=== PATIENT | male | born 1975 | race Caucasian/White ===

== ENCOUNTER 2021-09-11 22:35 | Inpatient (IN) | payer OTHER, SELFPAY ==
[2021-09-11 22:40] VITALS: BP 154/83; PULSE 88; RESP 16; TEMP 36.8; O2SAT 97
--- NOTE | 2021-09-11 22:45 | DI.CT_ITS ---
Exam(s) CT ABDOMEN PELVIS WO EXAM: CT ABDOMEN PELVIS WO CLINICAL HISTORY: right flank and rlq pain, r/o appe/stone. TECHNIQUE: Imaging Protocol: Axial computed tomography images with coronal and sagittal reformatted images were created and reviewed. COMPARISON: No exams were available for comparison FINDINGS: ABDOMEN: Lung Bases: Mild right basilar atelectasis. Liver: Normal density. There is a tiny hypodensity in the right lobe of the liver. It is too small f or further characterization but likely reflects benign lesions such as a cyst. Gallbladder and biliary tract: No radiodense calculus or biliary ductal dilation. Pancreas: Normal density, no abnormal calcifications or inflammatory process. Spleen: Normal. Kidneys: Normal size, contour and axis.There is a 5 mm stone at the right UVJ causing moderate hydron ephrosis. There is fluid in the perirenal space extending into the pelvis. No masses seen. Adrenal glands: No mass is seen. Lymph nodes: Within normal limits. Abdominal Aorta: Abdominal portion non-dilated. PELVIS: Bladder:Symmetric distention, no gross wall thickening. Bowel: No obstruction or bowel wall thickening. Appendix is unremarkable. There is a moderate amount of stool throughout the colon. Peritoneal cavity: No ascites, collection or mesenteric inflammatory response. No free air. Reproductive organs: Within normal limits. Bones: Within normal limits. Soft Tissues: Within normal limits. IMPRESSION: 5 mm right UVJ stone causing moderate hydronephrosis in fluid in the pararenal space suggesting forni ceal rupture. RADIATION DOSE DELIVERED: 934.65mGy.cm Total DLP DATA REPOSITORY: All CT scans at this facility are submitted to the National Radiology Data Registry (NRDR) Dose Index Registry (DIR) with the [employer] (ACR). RADIATION OPTIMIZATION: All CT scans at this facility use at least one of these dose optimization te chniques: automated exposure control; mA and/or kV adjustment per patient size (includes targeted exa ms where dose is matched to clinical indication); or iterative reconstruction.
--- NOTE | 2021-09-11 22:50 | ED.GENADUL_ITS ---
Discharge Plan Disposition Patient Disposition: [facility] INPATIENT Condition: Improving Discharge Details Chief Complaint: FlankPain Clinical Impression: Kidney stone on right side Primary Care Provider: Unknown,Unknown ED Provider: Torsten Ferrell Home Meds and New Rx's Prescriptions: No Action No Known Home Meds RF: 0 Medical Decision Making This is a pleasant 45-year-old male with a past medical history bilateral inguinal hernia repair, vasectomy, who presents today for evaluation of right flank and right lower quadrant abdominal pain. Patient states that for the last 4 days he has had a gradually worsening right-sided flank and abdominal pain. Pain was initially achy, but has worsened with time. He denies any vomiting or diarrhea. He does admit to some difficulty urinating. He denies any jude hematuria. He denies any burning with urination. He denies any testicular pain. He denies any history of kidney stone. He did take Advil yesterday and today and this only helped minimally. He has been drinking plenty of fluids at home. No other complaints at this time. No other modifying factors. Physical exam demonstrates mild right CVA tenderness, as well as mild right lower quadrant tenderness. Genital exam unremarkable. Differential is highest for urinary etiology, i.e. stone versus less likely infection. Appendicitis is also on the differential but less likely. We will treat the patient's pain, get a CT scan, rehydrate, monitor closely and reassess 12:03 AM Laboratory work-up has returned, patient does have a white count of 17, moderate left shift. No bands. Electrolytes stable, renal function demonstrates a creatinine 1.3, GFR 60%. Electrolytes normal. Lipase normal. Urinalysis shows moderate blood, small leuk esterase, only 5-10 WBCs and 5-10 RBCs. Relatively unremarkable otherwise. CT scan results have returned and the patient does have a 4 x 3 mm obstructing stone at the right UVJ, with a large amount of perinephric fluid suggesting probable forniceal rupture. Also 1 mm calcification along the margin of the right pelvic ureter, uncertain if this represents ureteral stone or mimicking phleboliths. On reassessment the patient's pain is nearly completely resolved. He feels much better. Vital signs remained completely stable with no tachycardia or hypotension. We will add blood cultures and Zosyn. I did contact Dr. Salinas he does feel that the patient would benefit from admission antibiotics and monitoring. He does not recommend emergent removal of the stone at this point given its location, small size, the patient general current assessment. We will add Flomax here in the ED. There are no beds currently at [facility] or the [facility]. We will keep the patient here for the time being, continue antibiotics monitor closely. Dr. Salinas is not available for emergent surgical intervention tomorrow morning, so I did discuss with the hospitalist Dr Morris about the options of keeping the patient here for continued monitoring. With no beds available at [facility] or [facility], and the patient's notably stable current clinical appearance, in conjunction with the stone being at the UVJ, and with the patient now having resolution of his pain, and potentially having passed a stone on his own, we will keep the patient here at for the time being continue to monitor with ur ology reassessment if indicated. I have extensively reviewed the treatment plan and discharge instructions with the patient. I have addressed all patient concerns at this time. The patient was made aware of what symptoms to monitor for that would warrant a return to the emergency department. Discussed the plan with the patient, they demonstrate verbal understanding and agreement with our assessment and plan at this time. The documentation in this chart was dictated using [employer] dictation software. Please excuse any dictation errors. FINDINGS: Tubes, catheters and devices: Surgical material associated with the anterior wall of the pelvis. Prior bilateral inguinal herniorrhaphy? Correlation with surgical history recommended. Lungs: Mild dependent atelectasis on the right. Liver: Small indeterminate hypoattenuating hepatic lesion, incompletely characterized but most likely a small cyst or hemangioma. Gallbladder and bile ducts: Normal appearing gallbladder. No calcified gallstones. No biliary dilatation. Pancreas: Grossly unremarkable unenhanced pancreas. Spleen: Grossly unremarkable unenhanced spleen. Adrenal glands: Normal appearing adrenal glands. Kidneys and ureters: Normal-appearing left kidney. No left-sided stones, hydronephrosis, or ureterectasis. 4 mm x 3 mm stone at the right ureterovesical junction with upstream ureterectasis, extensive periureteral edema, moderate hydronephrosis, and a large amount of perinephric fluid with fluid tracking along the anterior pararenal fascia, posterior pararenal fascia, lateral conal fascia, and pelvic sidewall. 1 mm calcification along the right pelvic sidewall on image 73 of series 2, possibly an additional small ureteral stone or possibly a mimicking adjacent small vascular calcification. Stomach and bowel: No oral contrast. Stomach partially decompressed. No small bowel dilatation to suggest obstruction. Moderate retained fecal material in the cecum, ascending colon, transverse colon, and descending colon. Downstream colon relatively well evacuated. No evidence of diverticulitis or colitis. Appendix: Normal appendix. Intraperitoneal space: No ascites or free air. Vasculature: Normal caliber abdominal aorta. Lymph nodes: No pathologically enlarged mesenteric, retroperitoneal, or pelvic sidewall lymph nodes. Urinary bladder: Urinary bladder moderately distended. Reproductive: Normal-appearing prostate gland and seminal vesicles. Bones/joints: No acute fracture seen among the bones of the abdomen or pelvis. Spinal degenerative change with discogenic degeneration and anterior osteophytes. Soft tissues: See Tubes, catheters and devices finding. IMPRESSION: 1. 4 mm x 3 mm obstructing stone at the right ureterovesical junction with a large amount of perinephric fluid suggesting probable forniceal rupture. Urology consultation recommended. 2. 1 mm calcification along the margin of the mid right pelvic ureter. It is uncertain if this represents an additional ureteral stone or a mimicking phlebolith adjacent to the ureter. Thank you for allowing us to participate in the care of your patient. Dictated and Authenticated by: Wero Schilling MD 09/11/2021 11:38 PM Eastern Time ( [facility] Date/Time Provider Initiated Documentation: 09/11/21 22:36 . HPI Narrative: This is a pleasant 45-year-old male with a past medical history bilateral inguinal hernia repair, vasectomy, who presents today for evaluation of right flank and right lower quadrant abdominal pain. Patient states that for the last 4 days he has had a gradually worsening right-sided flank and abdominal pain. Pain was initially achy, but has worsened with time. He denies any vomiting or diarrhea. He does admit to some difficulty urinating. He denies any jude hematuria. He denies any burning with urination. He denies any testicular pain. He denies any history of kidney stone. He did take Advil yesterday and today and this only helped minimally. He has been drinking plenty of fluids at home. No other complaints at this time. No other modifying factors. Related Data Home Medications Medication Instructions Recorded Confirmed Unknown [No Known Home Meds] 09/11/21 09/11/21 Allergies Allergy/AdvReac Type Severity Reaction Status Date / Time No Known Allergies Allergy Unverified 09/11/21 22:50 Review of Systems All systems reviewed & are unremarkable except as noted in HPI and below PFSH Social History Smoking/Tobacco Use Status: Former Tobacco Use Smoking risk assessment performed?: Yes Alcohol Intake: former Drug use: Never Substance use type: does not use Do you feel safe at home: Yes Do you feel safe in your relationship?: Yes Exam Narrative Exam Narrative: 1.Const: Well-nourished, Well-developed, appearing stated age 2.Eyes: PERRL, no conjunctival injection, and symmetrical lids. 3.ENT: Atraumatic external nose and ears. Moist MM. Neck: Symmetric, trachea midline, No thyromegaly. 4.CVS: +S1/S2, No murmurs or gallops. Peripheral pulses 2+ and equal in all extremities. Brisk capillary refill in all extremities. 5.RESP: Unlabored respiratory effort. Clear to auscultation bilaterally. No wheezes rales or rhonchi 6.GI: Soft,mild right CVA tenderness, mild right lower quadrant tenderness. No guarding. Negative Chris sign. No testicular tenderness. Normal cremasteric reflex. 7.MSK: Normocephalic/Atraumatic, Extremities w/o deformity or ttp No cyanosis or clubbing, Normal movement of all extremities 8.Skin: Warm, Dry. No rashes or lesions. 9.Neuro: recovery operator helper II-XII grossly intact. Sensation grossly intact, no focal neurologic deficits. 10.Psych: (AAO) x3. Appropriate mood and affect
[2021-09-11 22:54] LABS: Bilirubin Negative (Negative); Blood Moderate (Negative); Clarity Clear (Clear); Glucose Negative (Negative); Ketones 40 mg/dL (Negative); Leukocyte Esterase Small (Negative); Nitrite Negative (Negative); Specific Gravity 1.015 (1.005-1.025); Urobilinogen 0.2 EU/dL (Up TO 0.2); pH 5.5 (5-8)
[2021-09-11 22:58] LABS: Abs Immature Grans 0.04 10^3/uL (0.0-0.06); Absolute Basophil Count 0.05 10^3/uL (0.0-0.2); Absolute Eosinophil Count 0.02 10^3/uL (0.0-0.7); Absolute Lymphocyte Count 1.35 10^3/uL (1.2-3.4); Absolute Monocyte Count 1.46 10^3/uL (0.1-0.8); Absolute Neutrophil Count 14.45 10^3/uL (1.2-6.7); Basophils % 0.3; Eosinophils % 0.1; HCT 40.3 % (40.0-50.0); HGB 13.2 g/dL (13.5-17.5); Immature Grans % 0.2; Lymphocytes % 7.8; MCH 30.8 pg (27.0-33.0); MCHC 32.8 % (32.0-36.0); MCV 94.2 fL (80-95); MPV 9.7 fL (8.0-11.0); Monocytes % 8.4; Neutrophils % 83.2; Nucleated RBC 0 %; Platelet Count 272 10^3/uL (130-400); RBC 4.28 10^6/uL (4.36-5.78); RDW 12.3 % (11.8-14.1); WBC 17.37 10^3/uL (4.4-10.8)
[2021-09-11] MEDS: Ketorolac 15 MG/ML VIAL IVP (22:59)
[2021-09-11 23:01] LABS: Bacteria Few HPF (Negative); C & S Indicated? Yes; Casts Negative LPF (Negative); Crystals Negative HPF (Negative); Epithelial Cells Rare HPF (Negative); Mucus Negative (Negative)
[2021-09-11 23:11] LABS: ALT 18 U/L (16-63); AST 9 U/L (15-37); Albumin 3.9 g/dL (3.4-5.0); Alkaline Phosphatase 67 U/L (46-116); Anion Gap 8.4 mmol/L (3-11); BUN 9 mg/dL (7-18); Bilirubin, Total 0.7 mg/dL (0.2-1.0); CO2 29.6 mmol/L (21.0-32.0); CREATININE 1.3 mg/dL (0.70-1.30); Calcium 8.7 mg/dL (8.5-10.1); Chloride 100 mmol/L (98-107); Glucose 113 mg/dL (74-106); Lipase 58 U/L (73-393); Potassium 3.8 mmol/L (3.5-5.1); Sodium 138 mmol/L (136-145); Total Protein 7.7 g/dL (6.4-8.2)
[2021-09-11] MEDS: Normal Saline 1,000 ML 1000 ML IV (23:11)
[2021-09-11 23:16] VITALS: BP 120/71; PULSE 77; O2SAT 96
[2021-09-11 23:17] VITALS: O2SAT 95
--- NOTE | 2021-09-11 23:38 | DI.VRAD_ITS ---
PROCEDURE INFORMATION: Exam: CT Abdomen And Pelvis Without Contrast Exam date and time: 09/11/2021 10:50 PM Age: 45 years old Clinical indication: Abdominal pain and other: R flank pain; Right lower quadrant (rlq); Prior surgery; Surgery date: 6+ months; Surgery type: Hernia repair 6 years ago and vasectomy TECHNIQUE: Imaging protocol: Computed tomography of the abdomen and pelvis without contrast. Radiation optimization: All CT scans at this facility use at least one of these dose optimization techniques: automated exposure control; mA and/or kV adjustment per patient size (includes targeted exams where dose is matched to clinical indication); or iterative reconstruction. COMPARISON: No relevant prior studies available. FINDINGS: Tubes, catheters and devices: Surgical material associated with the anterior wall of the pelvis. Prior bilateral inguinal herniorrhaphy? Correlation with surgical history recommended. Lungs: Mild dependent atelectasis on the right. Liver: Small indeterminate hypoattenuating hepatic lesion, incompletely characterized but most likely a small cyst or hemangioma. Gallbladder and bile ducts: Normal appearing gallbladder. No calcified gallstones. No biliary dilatation. Pancreas: Grossly unremarkable unenhanced pancreas. Spleen: Grossly unremarkable unenhanced spleen. Adrenal glands: Normal appearing adrenal glands. Kidneys and ureters: Normal-appearing left kidney. No left-sided stones, hydronephrosis, or ureterectasis. 4 mm x 3 mm stone at the right ureterovesical junction with upstream ureterectasis, extensive periureteral edema, moderate hydronephrosis, and a large amount of perinephric fluid with fluid tracking along the anterior pararenal fascia, posterior pararenal fascia, lateral conal fascia, and pelvic sidewall. 1 mm calcification along the right pelvic sidewall on image 73 of series 2, possibly an additional small ureteral stone or possibly a mimicking adjacent small vascular calcification. Stomach and bowel: No oral contrast. Stomach partially decompressed. No small bowel dilatation to suggest obstruction. Moderate retained fecal material in the cecum, ascending colon, transverse colon, and descending colon. Downstream colon relatively well evacuated. No evidence of diverticulitis or colitis. Appendix: Normal appendix. Intraperitoneal space: No ascites or free air. Vasculature: Normal caliber abdominal aorta. Lymph nodes: No pathologically enlarged mesenteric, retroperitoneal, or pelvic sidewall lymph nodes. Urinary bladder: Urinary bladder moderately distended. Reproductive: Normal-appearing prostate gland and seminal vesicles. Bones/joints: No acute fracture seen among the bones of the abdomen or pelvis. Spinal degenerative change with discogenic degeneration and anterior osteophytes. Soft tissues: See Tubes, catheters and devices finding. IMPRESSION: 1. 4 mm x 3 mm obstructing stone at the right ureterovesical junction with a large amount of perinephric fluid suggesting probable forniceal rupture. Urology consultation recommended. 2. 1 mm calcification along the margin of the mid right pelvic ureter. It is uncertain if this represents an additional ureteral stone or a mimicking phlebolith adjacent to the ureter. Dictated and Authenticated by: Wero Schilling MD. Ordering:WENDIE Sarmiento MD
[2021-09-11] MEDS: Tamsulosin 0.4 MG CAPCR PO (23:51)
[2021-09-11] MEDS: PIPERACILLIN/TAZO 4.5 GM in Normal Saline 100 ML IVPB (23:51)
--- NOTE | 2021-09-11 23:51 | HPE_ITS ---
Date of service: 09/11/21 Time of Service: 23:52 Assessment and Plan Assessment and plan (1) Kidney stone on right side: Status: Acute Assessment and plan: CT findings suggestive of right sided forniceal rupture due to hydroureter from UVJ stone. Given his leukocytosis and free fluid in the abdomen, patient will be admitted for iv Zosyn and urology consultation. If he becomes septic and needs emergent cystoscopy and stent then he will need transfer to a tertiary center w/ urology services otherwise we will have Dr. Salinas evaluate him on morning. I will get renal US in the morning. POCUS exam of his right and left kidneys demonstrates numerous bilateral renal cysts w/ the right kidney demonstrating moderate hydronephrosis and hydroureter; stone visualized in the right UVJ. Perinephric fluid is demonstrated on the right. (2) Hydronephrosis due to obstruction of ureter: Status: Acute Assessment and plan: as above History of Present Illness History of Present Illness Chief Complaint: right flank pain Narrative: 45 yr old male former smoker who has no prior hx of renal disease presented w/ acute right flank pain w/ radiation into the right lower abdomen. Onset was Friday (3d ago) and was associated w/ dark colored urine but no jude hematuria. Pain has progressed and traveled down into the right lower pelvis. No fever or rigors and no testicular pain. Workup in the ER included renal CT scan of the abdomen and routine labs including UA, CBC, CMP. His CMP demonstrated preserved renal function w/ BUN 9 and creatinine 1.2, eGFR/1.73 m2 is >60), normal electrolytes and LFT and lipase. CBC demonstrates leukocytosis of 17,000 w/ left shift. UA is remarkable for 40 mg/dL ketones, moderate blood, negative for nitrites, small leukocyte esterase, 5-10 RBC/HPF, 5-10 WBC/HPF, few bacteria. Renal CT demonstrated the following: IMPRESSION: 1. 4 mm x 3 mm obstructing stone at the right ureterovesical junction with a large amount of perinephric fluid suggesting probable forniceal rupture. Urology consultation recommended. 2. 1 mm calcification along the margin of the mid right pelvic ureter. It is uncertain if this represents an additional ureteral stone or a mimicking phlebolith adjacent to the ureter. Dr. Ferrell treated the patient w/ Zocorin and spoke w/ Dr. Salinas from urology. Dr. Salinas indicated that the patient may pass the stone on his own but recommended admission for treatment w/ antibiotics and close observation as the patient may require urgent cystoscopy and stone removal if he is unable to pass the stone or shows signs of worsening infection but for now does not feel that urgent cystoscopy is needed given the small size and location of the stone. Dr. Ferrell contacted area tertiary care centers including [facility] and [facility] and they are not accepting patients at this time for transfer. Dr. Salinas indicated that he will return on morning (which is 32 hrs from now). Case was discussed w/ Dr. Ferrell and with the patient. The patient is comfortable at present after being medicated w/ toradol and morphine and he is comfortable staying here for treatment. Review of Systems All systems reviewed & are unremarkable except as noted in HPI and below Genitourinary Genitourinary: Reports as per HPI FOR[facility]LY [facility] Social History Smoking/Tobacco Use Status: Former Tobacco Use Smoking risk assessment performed?: Yes Alcohol Intake: former Drug use: Never Substance use type: does not use Do you feel safe at home: Yes Do you feel safe in your relationship?: Yes Meds Allergies and Home Medications Allergies Allergy/AdvReac Type Severity Reaction Status Date / Time No Known Allergies Allergy Unverified 09/11/21 22:50 Home Medications Medication Instructions Recorded Confirmed Type Unknown [No Known Home Meds] 09/11/21 09/11/21 History Exam Narrative Exam Narrative: Middle age white male who is sitting up on his [facility] in the ER department, currently pain is well controlled. alert and oriented x 2 HEENT: urnremarkable Neck: supple, normal rom, no adenopathy, normal pulses, neck veins flat Lungs: clear Heart: RRR w/o m,r,g Abdomen/flank: minimal right CVA tenderness w/ percussion, right lower quadrant tenderness w/ deep palpation. normal bowel sounds, no rebound tenderness, no organomegaly and no bruits Extremities: normal ROM; no edema or cyanosis Neuro: grossly normal Gentital exam: deferred as this was carried out by Dr. Ferrell and reported as normal. Results Labs Result diagrams: 09/11/21 22:55 09/11/21 22:55 Labs: Laboratory Results - last 24 hr 09/11/21 09/11/21 09/11/21 22:45 22:55 22:55 WBC 17.37 H RBC 4.28 L Hgb 13.2 L Hct 40.3 MCV 94.2 MCH 30.8 MCHC 32.8 RDW 12.3 Plt Count 272 MPV 9.7 Immature Gran % 0.2 Neutrophils % 83.2 Lymphocytes % 7.8 Monocytes % 8.4 Eosinophils % 0.1 Basophils % 0.3 Nucleated RBC % 0 Absolute Neutrophils 14.45 H Absolute Lymphocytes 1.35 Absolute Monocytes 1.46 H Absolute Eosinophils 0.02 Absolute Basophils 0.05 Sodium 138 Potassium 3.8 Chloride 100 Carbon Dioxide 29.6 Anion Gap 8.4 BUN 9 Creatinine 1.3 Estimated GFR/1.73 m2 >= 60.00 Glucose 113 H Calcium 8.7 Total Bilirubin 0.7 AST 9 L ALT 18 Alkaline Phosphatase 67 Total Protein 7.7 Albumin 3.9 Lipase 58 Urine Color Yellow Urine Clarity Clear Urine pH 5.5 Ur Specific [place] 1.015 Urine Protein Negative Urine Ketones 40 H Urine Blood Moderate H Urine Nitrite Negative Urine Bilirubin Negative Urine Urobilinogen 0.2 Ur Leukocyte Esterase Small H Urine RBC 5-10 H Urine WBC 5-10 Ur Epithelial Cells Rare Urine Crystals Negative Urine Bacteria Few Urine Casts Negative Urine Mucus Negative Ur Culture Indicated? Yes Urine Glucose Negative Last Vital Signs Temp 36.8 C 09/11/21 22:40 Pulse 77 09/11/21 23:16 Resp 16 09/11/21 22:40 BP 120/71 09/11/21 23:16 Pulse Ox 95 09/11/21 23:17
[2021-09-12] VITALS (8 sets, daily range): BP systolic 101–160; BP diastolic 58–92; PULSE 66–88; RESP 16–18; TEMP 37.1–38.3; O2SAT 96–99
[2021-09-12 00:19] LABS: Source Nasal/Nares
[2021-09-12] MEDS: MORPHine 2 MG/ML SYR IVP (02:10)
[2021-09-12] MEDS: Lactated Ringers 1,000 ML 150 ML IV (02:11)
[2021-09-12] MEDS: Ketorolac 15 MG/ML VIAL IVP ×2 (06:28→21:02)
[2021-09-12] MEDS: PIPERACILLIN/TAZO 4.5 GM in Normal Saline 100 ML IVPB ×3 (06:29→21:03)
[2021-09-12] MEDS: Normal Saline Flush 10 ML SYR IVP ×2 (06:29→14:40)
--- NOTE | 2021-09-12 07:00 | DI.US_ITS ---
Exam(s) US RENAL EXAM: US RENAL CLINICAL HISTORY: obstructive uropathy; right ureterolithiasis. TECHNIQUE: Francis scale, color and spectral Doppler were used. COMPARISON: No exams were available for comparison FINDINGS: Renal size in cm: Right: 12.3. Left: 12.7. Echogenicity: Normal. Hydronephrosis: Moderate right hydronephrosis. Cyst or mass: No. Nephrolithiasis: No. Other findings: None. Bladder:Normal. Ureteral jets: Right: Not visualized on this examination. Left: Visualized and unremarkable. Prevoid vol:260 cc Postvoid vol:46 cc Prostate: 20 cc Renal color flow: Symmetric and within normal limits. IMPRESSION: There is moderate right hydronephrosis. This is unchanged compared to the CT scan from the day prior . Prior CT scan from 09/11/2021 showed a right UVJ stone as the cause of the obstruction. DATA REPOSITORY:
[2021-09-12] MEDS: Acetaminophen 325 MG TAB 650 MG PO ×2 (07:54→15:27)
[2021-09-12] MEDS: Tamsulosin 0.4 MG CAPCR PO (07:55)
--- NOTE | 2021-09-12 09:45 | PDOC.CMIN ---
- If Service Date Differs Date of service: 09/12/21 Time of Service: 09:45 Care Management Initial Assess PAST MEDICAL HISTORY/PAST SURGICAL HISTORY:: All systems reviewed & are unremarkable except as noted in HPI and below. Genitourinary. Genitourinary: Reports as per HPI PREVIOUS FUNCTIONAL STATUS/SOCIAL/FAMILY SUPPORTS:: Ollie lives in [place], [place] with his female senior j2ee developer Brandee and 3 of their 4 children. The fourth lives closeby. 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 CURRENT FUNCTIONAL STATUS:: Ollie was sititng up in bed visiting with his long time partner Brandee when CM met with him. He was pleasant and cooperative during the visit. Ollie stated he hopes to be able to go home soon. He does not have a PCP and shared that he would like one, CM explained the process and informed him that a follow up appointment would be made for him. Ollie also shared that he does have insurance through his employer and will obtain the information tomorrow. ADVANCE DIRECTIVES:: none on file Has patient been provided with info about the portal/API?: Yes Did the patient sign up for the portal?: No CODE STATUS:: Full Code INSURANCE COVERAGE / FINANCIAL ISSUES:: Self pay CURRENT HOME/COMMUNITY SERVICES/EQUIPMENT:: none PRIMARY CARE PHYSICIAN:: none POTENTIAL DISCHARGE NEEDS:: establish with new PCP, get insurance PATIENT/FAMILY EDUCATION NEEDS:: Review of discharge instructions, medications, limitations, follow up plan, Ask Me Three TRANSPORTATION:: via private vehicle with friend PLAN:: Ollie will likely be discharged home with no new services . He will follow up with his community providers and plan of care and transport with friend/family.CM will continue to support Ollie and his discharge needs.
--- NOTE | 2021-09-12 12:47 | W.PM.PROGNOT ---
Date of Service Date of service: 09/12/21 Time of Service: 12:47 Assessment and Plan Assessment and plan (1) Kidney stone on right side: Status: Acute Assessment and plan: seen by urology and plan for for OR tomorrow. will be npo after midnight for procedure in am. continue flomax, pain management. strain all urine. (2) Hydronephrosis due to obstruction of ureter: Status: Acute Assessment and plan: as above discussed with Dr Riggs. Subjective Subjective Patient reports: still having pain and afebrile (max temp 37.8) Exam Const General: cooperative, healthy appearing, comfortable and no acute distress Nutritional Appearance: average body habitus Orientation: alert, awake and oriented x3 HENMT Head: normal to inspection, normocephalic and atraumatic Mouth: oral mucosae normal Resp Effort & Inspection: normal respiratory effort Auscultation: clear to auscultation bilaterally Cardio Rate: regular rate Rhythm: regular rhythm GI Inspection: normal to inspection Auscultation: normal bowel sounds Skin General skin exam: no rashes or lesions noted Neuro General: patient alert, patient awake, patient oriented x3 and no focal motor deficits Extrem General: normal to inspection, full ROM and no pedal edema Objective Last Vital Signs Temp 37.2 C 09/12/21 11:13 Pulse 66 09/12/21 11:13 Resp 18 09/12/21 11:13 BP 101/58 L 09/12/21 11:13 Pulse Ox 98 09/12/21 11:13 Laboratory Results - last 24 hr 09/11/21 09/11/21 09/11/21 22:45 22:55 22:55 WBC 17.37 H RBC 4.28 L Hgb 13.2 L Hct 40.3 MCV 94.2 MCH 30.8 MCHC 32.8 RDW 12.3 Plt Count 272 MPV 9.7 Immature Gran % 0.2 Neutrophils % 83.2 Lymphocytes % 7.8 Monocytes % 8.4 Eosinophils % 0.1 Basophils % 0.3 Nucleated RBC % 0 Absolute Neutrophils 14.45 H Absolute Lymphocytes 1.35 Absolute Monocytes 1.46 H Absolute Eosinophils 0.02 Absolute Basophils 0.05 Sodium 138 Potassium 3.8 Chloride 100 Carbon Dioxide 29.6 Anion Gap 8.4 BUN 9 Creatinine 1.3 Estimated GFR/1.73 m2 >= 60.00 Glucose 113 H Calcium 8.7 Total Bilirubin 0.7 AST 9 L ALT 18 Alkaline Phosphatase 67 Total Protein 7.7 Albumin 3.9 Lipase 58 Urine Color Yellow Urine Clarity Clear Urine pH 5.5 Ur Specific [place] 1.015 Urine Protein Negative Urine Ketones 40 H Urine Blood Moderate H Urine Nitrite Negative Urine Bilirubin Negative Urine Urobilinogen 0.2 Ur Leukocyte Esterase Small H Urine RBC 5-10 H Urine WBC 5-10 Ur Epithelial Cells Rare Urine Crystals Negative Urine Bacteria Few Urine Casts Negative Urine Mucus Negative Ur Culture Indicated? Yes Urine Glucose Negative COVID-19 Source 09/11/21 23:53 WBC RBC Hgb Hct MCV MCH MCHC RDW Plt Count MPV Immature Gran % Neutrophils % Lymphocytes % Monocytes % Eosinophils % Basophils % Nucleated RBC % Absolute Neutrophils Absolute Lymphocytes Absolute Monocytes Absolute Eosinophils Absolute Basophils Sodium Potassium Chloride Carbon Dioxide Anion Gap BUN Creatinine Estimated GFR/1.73 m2 Glucose Calcium Total Bilirubin AST ALT Alkaline Phosphatase Total Protein Albumin Lipase Urine Color Urine Clarity Urine pH Ur Specific [place] Urine Protein Urine Ketones Urine Blood Urine Nitrite Urine Bilirubin Urine Urobilinogen Ur Leukocyte Esterase Urine RBC Urine WBC Ur Epithelial Cells Urine Crystals Urine Bacteria Urine Casts Urine Mucus Ur Culture Indicated? Urine Glucose COVID-19 Source Nasal/Nares
[2021-09-12 13:54] LABS: COVID-19 PCR Negative (Negative)
--- NOTE | 2021-09-12 16:15 | UCONE_ITS ---
Date of service: 09/12/21 Time of Service: 15:25 Assessment and Plan Assessment and plan (1) Hydronephrosis due to obstruction of ureter: Status: Acute (2) Kidney stone on right side: Status: Acute Assessment and plan: Mr. Mesa is a 45-year-old male with a 5 mm right UVJ stone causing moderate hydronephrosis in fluid in the pararenal space suggesting forniceal rupture. We discussed the possibility of spontaneous passage of the stone. He is currently on tamsulosin and pain is controlled. We did discuss surgical intervention that could occur as soon as tomorrow. It would include cystoscopy with ureteroscopy along with stent placement. He expresses understanding. We did briefly discussed that the most common stone composition is calcium based. We noted basic dietary measures for prevention. We discussed that we would know more as far as dietary measures prevention suggestions once we knew his stone composition. He expresses understanding to this matter also. Preop orders were completed and given to nursing for scheduling of this [facility] for tomorrow. Hospitalist was notified to keep patient n.p.o. at midnight today. Patient was also already Covid tested and found to be negative. Dictation was done by [employer] voice recognition. Errors may be present within the note. A total of 30 minutes was spent reviewing this patient's EMR, [id number] time, and documenting. History of Present Illness History of Present Illness Chief Complaint: Right flank pain Narrative: HPI Ollie is a 45-year-old male that was seen initially through the emergency room yesterday for right flank pain. It was determined that he has a right 5 mm UVJ stone causing moderate hydronephrosis and fluid in the pararenal space sug gesting forniceal rupture. Patient notes that this is his first kidney stone. He has no history of parathyroidism or gout. He finds that his discomfort is manageable as long as he does not change position. He is not having gross hematuria, dysuria, change in frequency or urgency or suprapubic discomfort. PMH Unremarkable SX [place] teeth Vasectomy Hernia x2 Social Former smoker Former alcoholic Works for [employer] Allergies Reviewed elsewhere in the chart Medications Reviewed elsewhere in the chart Family Hx No known family history of urologic concerns or cancers Consults Consult date: 09/12/21 Requesting physician: Surya Morris Review of Systems Constitutional Constitutional: Reports as per HPI Genitourinary Genitourinary: Reports as per HPI [facility] Social History Smoking/Tobacco Use Status: Former Tobacco Use Smoking risk assessment performed?: Yes Alcohol Intake: former Drug use: Never Substance use type: does not use Do you feel safe at home: Yes Do you feel safe in your relationship?: Yes Exam Const General: cooperative, comfortable and no acute distress Nutritional Appearance: average body habitus Orientation: alert, awake and oriented x3 Resp Effort & Inspection: normal respiratory effort GI Palpation: soft and tender in the RLQ; not suprapubicly General: CVA tenderness on the right; not on the left Results Last Vital Signs Temp 100.2 F H 09/12/21 15:27 Pulse 66 09/12/21 11:13 Resp 18 09/12/21 11:13 BP 101/58 L 09/12/21 11:13 Pulse Ox 98 09/12/21 11:13 Labs Result diagrams: 09/11/21 22:55 09/11/21 22:55 Labs: Laboratory Results - last 24 hr 09/11/21 09/11/21 09/11/21 22:45 22:55 22:55 WBC 17.37 H RBC 4.28 L Hgb 13.2 L Hct 40.3 MCV 94.2 MCH 30.8 MCHC 32.8 RDW 12.3 Plt Count 272 MPV 9.7 Immature Gran % 0.2 Neutrophils % 83.2 Lymphocytes % 7.8 Monocytes % 8.4 Eosinophils % 0.1 Basophils % 0.3 Nucleated RBC % 0 Absolute Neutrophils 14.45 H Absolute Lymphocytes 1.35 Absolute Monocytes 1.46 H Absolute Eosinophils 0.02 Absolute Basophils 0.05 Sodium 138 Potassium 3.8 Chloride 100 Carbon Dioxide 29.6 Anion Gap 8.4 BUN 9 Creatinine 1.3 Estimated GFR/1.73 m2 >= 60.00 Glucose 113 H Calcium 8.7 Total Bilirubin 0.7 AST 9 L ALT 18 Alkaline Phosphatase 67 Total Protein 7.7 Albumin 3.9 Lipase 58 Urine Color Yellow Urine Clarity Clear Urine pH 5.5 Ur Specific [place] 1.015 Urine Protein Negative Urine Ketones 40 H Urine Blood Moderate H Urine Nitrite Negative Urine Bilirubin Negative Urine Urobilinogen 0.2 Ur Leukocyte Esterase Small H Urine RBC 5-10 H Urine WBC 5-10 Ur Epithelial Cells Rare Urine Crystals Negative Urine Bacteria Few Urine Casts Negative Urine Mucus Negative Ur Culture Indicated? Yes Urine Glucose Negative COVID-19 Source SARS-CoV-2 (PCR) 09/11/21 23:53 WBC RBC Hgb Hct MCV MCH MCHC RDW Plt Count MPV Immature Gran % Neutrophils % Lymphocytes % Monocytes % Eosinophils % Basophils % Nucleated RBC % Absolute Neutrophils Absolute Lymphocytes Absolute Monocytes Absolute Eosinophils Absolute Basophils Sodium Potassium Chloride Carbon Dioxide Anion Gap BUN Creatinine Estimated GFR/1.73 m2 Glucose Calcium Total Bilirubin AST ALT Alkaline Phosphatase Total Protein Albumin Lipase Urine Color Urine Clarity Urine pH Ur Specific [place] Urine Protein Urine Ketones Urine Blood Urine Nitrite Urine Bilirubin Urine Urobilinogen Ur Leukocyte Esterase Urine RBC Urine WBC Ur Epithelial Cells Urine Crystals Urine Bacteria Urine Casts Urine Mucus Ur Culture Indicated? Urine Glucose COVID-19 Source Nasal/Nares SARS-CoV-2 (PCR) Negative
[2021-09-13 00:05] VITALS: BP 131/87; PULSE 74; RESP 19; TEMP 36.6; O2SAT 98
[2021-09-13 03:22] VITALS: BP 105/64; PULSE 66; RESP 18; TEMP 37; O2SAT 97
[2021-09-13] MEDS: PIPERACILLIN/TAZO 4.5 GM in Normal Saline 100 ML IVPB (06:09)
[2021-09-13] MEDS: Normal Saline Flush 10 ML SYR IVP (06:09)
--- NOTE | 2021-09-13 06:57 | W.ANESPRE ---
General Info Height: 6 ft Weight: 83.9 kg Body Mass Index (BMI): 25.0 Surgical Procedure: Operation Date: 09/13/21 11:10 Proposed Procedures Side Surgeon p Cystoscopy/Laser/Retrograde/Ureteroscopy Right Ajit Salinas MD Meds Allergies and Home Medications Allergies Allergy/AdvReac Type Severity Reaction Status Date / Time No Known Allergies Allergy Unverified 09/11/21 22:50 Home Medication Medication Instructions Recorded Unknown [No Known Home Meds] 09/11/21 Current Visit Medications: Current Medications Generic Name Dose Route Start Last Admin Trade Name Freq PRN Reason Stop Dose Admin Acetaminophen 650 mg 09/12/21 00:55 09/12/21 15:27 Acetaminophen 325 Mg Tab PO 650 mg Q4H PRN PRN Administration Al Hydrox/Mg Hydrox/Simethicone 30 ml 09/12/21 00:57 Mylanta Suspension 30 Ml Cup PO Q2H PRN PRN Dimethicone/Zinc Oxide 0 gm 09/12/21 00:57 José Manuel Protect Cream 142 Gm Tube TP PRN PRN Docusate Sodium 100 mg 09/12/21 00:57 Docusate Sodium 100 Mg Cap PO TID PRN PRN Sodium Chloride 500 mls @ 0 mls/hr 09/11/21 23:51 Saline 500ml Bag IV PRN PRN As Directed Piperacillin Sod/Tazobactam 100 mls @ 25 mls/hr 09/12/21 06:00 09/13/21 06:09 Sod 4.5 gm/ Sodium Chloride IVPB 25 mls/hr Q8H JONAS Administration Protocol IV Miscellaneous Supplies 1 each 09/11/21 23:45 Iv Access IV DIRECTED JONAS Magnesium Hydroxide 30 ml 09/12/21 00:57 Milk Of Magnesia 30 Ml Cup PO DAILY PRN PRN Morphine Sulfate 2 - 4 mg 09/12/21 00:55 09/12/21 02:10 Morphine 2 Mg/Ml Syr IVP 4 mg Q2H PRN PRN Administration Nicotine 21 mg 09/12/21 00:57 Nicotine 21 Mg/24 Hr Patch TD DAILY PRN PRN Ondansetron HCl 4 mg 09/12/21 00:55 Ondansetron 4 Mg/2 Ml Vial IVP Q4H PRN PRN Polyethylene Glycol 17 gm 09/12/21 00:57 Polyethylene Glycol 3350 17 Gm Packet PO DAILY PRN PRN Constipation Sodium Chloride 0 ml 09/11/21 23:51 09/13/21 06:09 Normal Saline Flush 10 Ml Syr IVP 10 ml PRN PRN Administration Tamsulosin HCl 0.4 mg 09/12/21 08:30 09/12/21 07:55 Tamsulosin 0.4 Mg Capcr PO 0.4 mg DAILY JONAS Administration PFSH Active Problems Active Problems: Problem Status Onset Code Hydronephrosis due to obstruction of ureter N13.1 Kidney stone on right side N20.0 Tobacco Smoking/Tobacco Use Status: Former Tobacco Use Alcohol Alcohol Intake: former Substance Use Substance use: Never Substance use type: does not use Vital Signs and Lab Results Vital Signs Most Recent Vital Signs in EMR: Most Recent Vital Signs Temp Pulse Resp BP Pulse Ox 37.0 C 66 18 105/64 97 09/13/21 03:22 09/13/21 03:22 09/13/21 03:22 09/13/21 03:22 09/13/21 03:22 Lab Results Result Diagrams: 09/13/21 07:25 09/13/21 07:25 Blood Type / Crossmatch: No Data to Display Complete Blood Count: White Blood Count 11.28 10^3/uL (4.4-10.8) H 09/13/21 07:25 09/13/21 Red Blood Count 3.76 10^6/uL (4.36-5.78) L 09/13/21 07:25 09/13/21 Hemoglobin 11.4 g/dL (13.5-17.5) L 09/13/21 07:25 09/13/21 Hematocrit 35.6 % (40.0-50.0) L 09/13/21 07:25 09/13/21 Platelet Count 239 10^3/uL (130-400) 09/13/21 07:25 09/13/21 Complete Metabolic Panel: Sodium Level 144 mmol/L (136-145) 09/13/21 07:25 09/13/21 Potassium Level 4.3 mmol/L (3.5-5.1) 09/13/21 07:25 09/13/21 Chloride Level 108 mmol/L (98-107) H 09/13/21 07:25 09/13/21 Carbon Dioxide Level 27.5 mmol/L (21.0-32.0) 09/13/21 07:25 09/13/21 Blood Urea Nitrogen 10 mg/dL (7-18) 09/13/21 07:25 09/13/21 Creatinine 1.0 mg/dL (0.70-1.30) 09/13/21 07:25 09/13/21 Estimated GFR/1.73 m2 >= 60.00 (mL/min/1.73m2) 09/13/21 07:25 09/13/21 Calcium Level 8.7 mg/dL (8.5-10.1) 09/13/21 07:25 09/13/21 Albumin 3.9 g/dL (3.4-5.0) 09/11/21 22:55 09/11/21 Glucose Level 97 mg/dL (74-106) 09/13/21 07:25 09/13/21 Liver Function Panel: Alanine Aminotransferase (ALT/SGPT) 18 U/L (16-63) 09/11/21 22:55 09/11/21 Aspartate Amino Transf (AST/SGOT) 9 U/L (15-37) L 09/11/21 22:55 09/11/21 Coagulation Panel: No Data to Display Cardiac Panel: No Data to Display Arterial Blood Gas: No Data to Display Venous Blood Gas: No Data to Display Pancreas Panel: Lipase 58 U/L (73-393) 09/11/21 22:55 09/11/21 Thyroid Panel: No Data to Display Infectious Disease: Coronavirus (COVID-19)(PCR) Negative (Negative) 09/11/21 23:53 09/11/21 Coronavirus 2019 Source Nasal/Nares 09/11/21 23:53 09/11/21 Blood Cultures: No Data to Display Toxicology Panel: No Data to Display Anesthesia Assessment and Plan Anesthesia History Personal History: No History of Anesthesia Complications Family History: No Family History of Anesthesia Complications ASA Classification ASA Score: ASA 2 Emergency Case?: No NPO Status NPO Status: NPO Clears >2 hours, Solids >8 hours Anesthesia Plan Resuscitation Status: Full Code Anesthesia Technique: General Anesthesia Airway Planned: LMA Monitors Used: Standard Monitors Preoperative Comments:: 45 yo male for cysto/retrograde due to obstructing stone/hydroneph. Sig PMHx: former smoker, former EtOH, Admitted, on Pip/Jean-Paul , ketorolac, acetaminophen stone passed, case canceled.
[2021-09-13 07:31] VITALS: BP 113/70; PULSE 63; RESP 17; TEMP 37.2; O2SAT 97
[2021-09-13 07:51] LABS: Abs Immature Grans 0.02 10^3/uL (0.0-0.06); Absolute Eosinophil Count 0.06 10^3/uL (0.0-0.7); Absolute Lymphocyte Count 1.86 10^3/uL (1.2-3.4); Absolute Monocyte Count 1.12 10^3/uL (0.1-0.8); Absolute Neutrophil Count 8.18 10^3/uL (1.2-6.7); Basophils % 0.4; Eosinophils % 0.5; HCT 35.6 % (40.0-50.0); HGB 11.4 g/dL (13.5-17.5); Immature Grans % 0.2; Lymphocytes % 16.5; MCH 30.3 pg (27.0-33.0); MCV 94.7 fL (80-95); MPV 10.3 fL (8.0-11.0); Monocytes % 9.9; Neutrophils % 72.5; Nucleated RBC 0 %; Platelet Count 239 10^3/uL (130-400); RBC 3.76 10^6/uL (4.36-5.78); RDW 12.5 % (11.8-14.1); RDW-SD 43.8 fL; WBC 11.28 10^3/uL (4.4-10.8)
[2021-09-13 07:55] LABS: Absolute Basophil Count 0.05 10^3/uL (0.0-0.2)
[2021-09-13 08:04] LABS: Anion Gap 8.5 mmol/L (3-11); BUN 10 mg/dL (7-18); CO2 27.5 mmol/L (21.0-32.0); Calcium 8.7 mg/dL (8.5-10.1); Chloride 108 mmol/L (98-107); Glucose 97 mg/dL (74-106); Potassium 4.3 mmol/L (3.5-5.1); Sodium 144 mmol/L (136-145)
[2021-09-13] MEDS: Tamsulosin 0.4 MG CAPCR PO (08:57)
--- NOTE | 2021-09-13 10:36 | DSE_ITS ---
Date of service: 09/13/21 Time of Service: 10:37 DS: Diagnosis Discharge Diagnosis (1) Hydronephrosis due to obstruction of ureter: Status: Acute (2) Kidney stone on right side: Status: Acute Discharge Plan Disposition Patient Disposition: HOME Condition: Improving Discharge Details Reason For Visit: Kidney Stone Admit Date/Time: 09/11/21 23:52 Admit Provider: Surya Morris Attending Provider: Surya Morris Primary Care Provider: Unknown,Unknown Hospital Course Hospital Course: This is a 45 year old male who presents to ED for flank pain, diagnosed with a 5 mm right UVJ stone causing moderate hydronephrosis in fluid in the pararenal space suggesting forniceal rupture. He was placed on tamsulosin, zosyn and pain controlled. He was admitted and urology consult placed. plan was for OR in the am but overnight he ended up passing his stone. He is stable for discharge to home, no services and will be give 3 days of keflex while cultures pending. He will f/u with urology outpatient. discharge discussed with DR Riggs. Home Meds and New Rx's Prescriptions: New cephalexin 500 mg capsule 500 mg PO BID Qty: 6 RF: 0 Discharge Instructions Instructions: Kidney Stones (DC), Urinary Tract Infection in Older Adults (DC) Stand Alone Forms: Nursing Discharge Form Referrals: Ajit Salinas MD [ [facility] STAFF PHYSICIAN] - 10/04/21 11:20 am Activity:: Activity as Tolerated Equipment/Supplies:: No Equipment Needed Diet:: As Tolerated Discharge Orders Discharge Orders: Discharge Order (Routine); Ordered 09/13/21 Ordered By: Eva Breen DS: Summary Time Spent with Patient providing and/or coordinating discharge services: Less than 30 minutes Status at Discharge Functional status at discharge: independent ambulation Overall status at discharge: patient is back to baseline Mental Status: mental status grossly normal Speech and Movement: speech and movement normal Mood: congruent mood Affect: normal affect Exam Const General: cooperative, healthy appearing, comfortable and no acute distress Nutritional Appearance: average body habitus Orientation: alert, awake and oriented x3 HENMT Head: normal to inspection, normocephalic and atraumatic Mouth: oral mucosae normal Resp Effort & Inspection: normal respiratory effort Auscultation: clear to auscultation bilaterally Cardio Rate: regular rate Rhythm: regular rhythm GI Inspection: normal to inspection Auscultation: normal bowel sounds Skin General skin exam: no rashes or lesions noted Neuro General: patient alert, patient awake, patient oriented x3 and no focal motor deficits Extrem General: normal to inspection, full ROM and no pedal edema Psych Mental Status: mental status grossly normal Speech and Movement: speech and movement normal Mood: congruent mood Affect: normal affect DS: Data Vitals/I&O Vitals and I&O: Vital Signs Temperature 37.2 C 09/13/21 07:31 Temperature Source Tympanic 09/13/21 07:31 Pulse 63 09/13/21 07:31 Pulse Rhythm Regular 09/13/21 00:20 Respiratory Rate 17 09/13/21 07:31 Respiratory Effort Non-Labored 09/13/21 00:20 Respiratory Depth Normal 09/13/21 00:20 Respiratory Pattern Normal 09/13/21 00:20 Blood Pressure 113/70 09/13/21 07:31 Blood Pressure Mean 81 09/11/21 23:16 Blood Pressure Position Sitting 09/11/21 22:40 Pulse Oximetry 97 09/13/21 07:31 Oxygen Delivery Method Room Air 09/13/21 07:31 Oxygen Flow Rate 0 09/13/21 07:31 Pain Level 1 09/13/21 07:31 Comment 09/12/21 15:30 Intake & Output 09/12/21 09/12/21 09/13/21 11:59 23:59 11:59 Intake Total 2200 / 2300 100 / 2300 680 / 680 Balance 2200 / 2300 100 / 2300 680 / 680 Weight 83.9 kg 84 kg Intake: IV 2200 / 2300 100 / 2300 200 / 200 Oral 480 / 480 Other: Urine Color Yellow Urine Appearance Clear Clear Clear Urine Odor Normal Comment pT reports voiding independent Independent. Voiding Methods Toilet Toilet Toilet Data Completed and Pending Labs on day of discharge: Labs from last 24 hours 09/13/21 09/13/21 09/13/21 07:25 07:25 03:30 WBC 11.28 H RBC 3.76 L Hgb 11.4 L Hct 35.6 L MCV 94.7 MCH 30.3 MCHC 32.0 RDW 12.5 Plt Count 239 MPV 10.3 Immature Gran % 0.2 Neutrophils % 72.5 Lymphocytes % 16.5 Monocytes % 9.9 Eosinophils % 0.5 Basophils % 0.4 Nucleated RBC % 0 Absolute Neutrophils 8.18 H Absolute Lymphocytes 1.86 Absolute Monocytes 1.12 H Absolute Eosinophils 0.06 Absolute Basophils 0.05 Sodium 144 Potassium 4.3 Chloride 108 H Carbon Dioxide 27.5 Anion Gap 8.5 BUN 10 Creatinine 1.0 Estimated GFR/1.73 m2 >= 60.00 Glucose 97 Calcium 8.7 Stone Source Pending Stone Comment Pending Kidney Stone Analysis Pending SARS-CoV-2 (PCR) 09/11/21 23:53 WBC RBC Hgb Hct MCV MCH MCHC RDW Plt Count MPV Immature Gran % Neutrophils % Lymphocytes % Monocytes % Eosinophils % Basophils % Nucleated RBC % Absolute Neutrophils Absolute Lymphocytes Absolute Monocytes Absolute Eosinophils Absolute Basophils Sodium Potassium Chloride Carbon Dioxide Anion Gap BUN Creatinine Estimated GFR/1.73 m2 Glucose Calcium Stone Source Stone Comment Kidney Stone Analysis SARS-CoV-2 (PCR) Negative 09/11/21 22:45 Urine - Reflex from Urine Culture - Pending Preliminary micro results at discharge 09/11/21 23:30 Blood Culture - Preliminary Blood NO GROWTH 24 HOURS 09/11/21 23:25 Blood Culture - Preliminary Blood NO GROWTH 24 HOURS 09/11/21 22:45 Urine Culture - Pending Urine - Reflex from [facility] Social History Smoking/Tobacco Use Status: Former Tobacco Use Smoking risk assessment performed?: Yes Alcohol Intake: former Drug use: Never Substance use type: does not use Do you feel safe at home: Yes Do you feel safe in your relationship?: Yes
--- NOTE | 2021-09-13 18:50 | PDOC.CMDIS ---
LACE Index Scoring Tool - Questions: Length of Stay (in days): 2 Acuity (Admit via E.D.?): Yes E.D. Visits: 1 - Answers: Total Score: 6 Risk of Readmission: Low Risk Care Management Discharge Reason for Hospitalization: Kidney Stone Discharge Plan: Ollie will discharge home with no new services. He will follow up with his community providers and plan of care and transport with friend/family. CM will continue to support Ollie and his discharge needs. Patient/Family Education Needs: Review discharge instructions, discuss Ask Me Three.
== END 2021-09-13 11:45 | disposition home or self-care (01) | DRG 694 ==
LOC: ER 09-12 00:12 → MS 09-12 00:36
PROVIDERS: Admitting Provider Internal Medicine; Emergency Provider Student in an Organized Health Care Education/Training Program; Visit Provider Internal Medicine
DX: N13.2 Hydronephrosis with renal and ureteral calculous obstruction; Z87.891 Personal history of nicotine dependence; Z20.822 Contact with and (suspected) exposure to COVID-19
CPT/HCPCS: 36415; 76770; 80048; 80053; 83690; 87040; 87635; 96361; 96365; 96375; 99285; 74176; 81003; 81015; 82365; 85025; 87086; 99222; 99232; 99238; 99284; J1885; J2270; J2543

== ENCOUNTER 2024-12-13 15:17 | Outpatient (CLI) | payer OTHER, SELFPAY ==
--- NOTE | 2024-12-13 | DI.RAD_ITS ---
Exam(s) XR KNEE RT 3V AP,LAT,MIKAL EXAM: XR KNEE RT 3V AP,LAT,MIKAL CLINICAL HISTORY: Rt knee sprain, S83.91. TECHNIQUE: 2D digital imaging was performed. Three views. COMPARISON: No exams were available for comparison FINDINGS: BONES: No acute fracture is present. No bony destructive lesion is seen. JOINTS: The knee is normally aligned. No joint effusion is seen. The joint spaces are maintained. SOFT TISSUE: Soft tissue swelling anterior to the patella could indicate prepatellar bursitis. IMPRESSION: Soft tissue swelling anterior to the patella could indicate prepatellar bursitis. DATA REPOSITORY: RADIATION DOSE DELIVERED:
== END 2024-12-13 15:37 ==
PROVIDERS: Visit Provider Internal Medicine
DX: R22.41 Localized swelling, mass and lump, right lower limb (principal)
CPT/HCPCS: 73562